=== PATIENT | male | born 1990 | race Hispanic/Latino ===

== ENCOUNTER 2022-07-23 09:56 | Emergency (ER) | payer SELFPAY ==
[2022-07-23 11:18] VITALS: BP 144/73
--- NOTE | 2022-07-23 13:02 | Emergency Department Report ---
[facility] Chief Complaint: Eye Problems Stated Complaint: PINK EYE/SORE THROAT/HEADACHE Time Seen by Provider: 07/23/22 12:29 Duration: 4 Days Side: Bilateral Severity: mild Symptoms: Yes Eye Itching, Yes Eye Redness, Yes Eye Pain, Yes Mucous Drainage, Yes Purulent Drainage, Yes Preceding URI, Yes Contact Lens Use (Glasses), No Blurred Vision, No H/O Allergic Rhinitis, No Trauma, No Fever, No Headache Other History: Patient presenting with bilateral pinkeye. Symptoms going on for 5 days, increased drainage, mucus production, states is worse in the morning with eyes matting up. Has been applying some [id number] anti-itch drops without improvement. He denies foreign body, trauma to his eye, patient's wears corrective lenses. He denies vision changes, ED Review of Systems ROS: Stated complaint: PINK EYE/SORE THROAT/HEADACHE Other details as noted in HPI Constitutional: denies: chills, fever Eyes: eye discharge. denies: vision change ENT: denies: ear pain, throat pain Respiratory: denies: cough Cardiovascular: denies: chest pain, dyspnea on exertion Endocrine: see HPI Gastrointestinal: denies: abdominal pain, nausea, vomiting Musculoskeletal: denies: back pain Skin: denies: rash, lesions Neurological: denies: headache, weakness Psychiatric: denies: anxiety, auditory hallucinations ED Past Medical Hx - Past Medical History Previous Medical History?: No - Surgical History Past Surgical History?: No - Medications Home Medications: Home Medications Medication Instructions Recorded Confirmed Last Taken Type Erythromycin [Erythromycin Ophth 1 applic OP Q4H 5 Days #1 tube 07/23/22 Unknown Rx Oint] [facility] Exam - Exam General: Vital signs noted. No distress. Alert and acting appropriately. Patient has bilateral conjunctival erythema matted up, Eye Exam: Both Mucous Discharge, Both Purulent Discharge, Neither Injection, Neither Chemosis, Neither Abnormal Pupil, Neither EOMI, Neither Eye Foreign Body, Neither Lid Foreign Body, Neither Photophobia HEENT: No Nasal Congestion, No Pharyngeal Erythema Remainder of HEENT: Normal Lungs: Yes Clear Lung Sounds, Yes Good Air Exchange, No Wheezes, No Stridor, No Cough, No Nasal Flaring, No Retractions, No Use of Accessory Muscles Exam: General: Nontoxic appearing no acute distress. Cardiac: Regular rate, normal heart sounds. 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 GI/-normal sounds, nontender no guarding. Musculoskeletal- normal inspection full range of motion. Neuro-alert oriented x4. ED Course Vital Signs 07/23/22 11:15 Temperature 98.5 F Pulse Rate 74 Respiratory 18 Rate Blood Pressure 144/73 [Left] O2 Sat by Pulse 99 Oximetry Critical care attestation.: If time is entered above; I have spent that time in minutes in the direct care of this critically ill patient, excluding procedure time. ED Disposition Clinical Impression: Acute conjunctivitis of both eyes Disposition: 01 HOME / SELF CARE / HOMELESS Is pt being admited?: No Does the pt Need Aspirin: No Condition: Stable Instructions: Bacterial Conjunctivitis, Adult Prescriptions: Erythromycin [Erythromycin Ophth Oint] 1 applic OP Q4H 5 Days #1 tube Forms: Work/School Release Form(ED)
== END 2022-07-24 07:36 | disposition home or self-care (01) ==
LOC: ED 09:56
DX: H10.13 Acute atopic conjunctivitis, bilateral (principal)
CPT/HCPCS: 99282